=== PATIENT | female | born 1995 | race Caucasian/White ===

== ENCOUNTER 2024-01-28 22:03 | Emergency (ER) | payer MEDICAID ==
[~2024-01-28] VITALS: Ht 160 cm; Wt 70.0 kg
[2024-01-28 22:24] VITALS: TEMP 98.2
[2024-01-28 23:08] LABS: MEAN PLATELET VOLUME 6.9 FL (7.4-10.4); MONOCYTES # (AUTO) 0.8 X10'3 (0-0.9); MONOCYTES % (AUTO) 4.2 % (2-12)
[2024-01-28 23:09] LABS: BASOPHILS # (AUTO) 0.1 X10'3 (0-0.2); BASOPHILS % (AUTO) 0.4 % (0-1); EOSINOPHILS # (AUTO) 0.3 X10'3 (0-0.9); EOSINOPHILS % (AUTO) 1.7 % (0-6); HEMATOCRIT 33.6 % (35.0-45.0); LYMPHOCYTES # (AUTO) 1.5 X10'3 (1.1-4.8); LYMPHOCYTES % (AUTO) 8.6 % (21-51); MEAN CORPUSCULAR HEMOGLOBIN 25.9 PG (27.0-31.0); MEAN CORPUSCULAR HGB CONC 32.7 g/dL (33.0-36.5); MEAN CORPUSCULAR VOLUME 79.4 FL (78-98); NEUTROPHILS # (AUTO) 15.3 X10'3 (1.8-7.7); NEUTROPHILS % (AUTO) 85.1 % (42-75); PLATELET COUNT 636 X10'3 (140-440); RED BLOOD COUNT 4.23 X10'6 (4.20-5.60); RED CELL DISTRIBUTION WIDTH 14.5 % (11.5-14.5)
[2024-01-28 23:18] LABS: ALANINE AMINOTRANSFERASE 14 U/L (12-78); ALBUMIN 3.1 G/DL (3.4-5.0); ALBUMIN/GLOBULIN RATIO 0.6 (1.1-1.5); ALKALINE PHOSPHATASE 65 IU/L (46-116); ANION GAP 9 (8-16); ASPARTATE AMINO TRANSFERASE 12 U/L (10-37); BILIRUBIN,TOTAL 0.1 MG/DL (0.1-1.0); BLOOD UREA NITROGEN 13 MG/DL (7-18); BUN/CREATININE RATIO 18.1 (10.0-20.0); CALCIUM 9.2 MG/DL (8.5-10.1); CHLORIDE 102 MMOL/L (99-107); CREATININE 0.72 MG/DL (0.40-0.90); GLUCOSE 115 MG/DL (70-104); POTASSIUM 3.9 MMOL/L (3.5-5.1); SODIUM 142 MMOL/L (135-145); TOTAL CARBON DIOXIDE 30.7 MMOL/L (24-32); TOTAL PROTEIN 8.1 G/DL (6.4-8.2); eCRCL 97 ML/MIN; eGFR > 90 ML/MIN
[2024-01-28 23:29] LABS: LIPASE 12 U/L (16-77)
[2024-01-28 23:37] LABS: BETA HCG,QUANTITATIVE < 1.0 mIU/ml
[2024-01-29] MEDS ORDERED: ketorolac trometh. 30mg/ml inj. IV ONE (00:05)
[2024-01-29] MEDS: ondansetron/PF 4mg/2ml inj IV ONE (00:06)
[2024-01-29] MEDS: morphine 4 MG/ML inj SYRINge IV ONE (00:06)
[2024-01-29] MEDS: ketorolac tromethamine 15mg/ml inj. IV ONE (00:50)
[2024-01-29] MEDS: normal saline 1000ml 1,000 ML IV ONE (00:50)
[2024-01-29] MEDS ORDERED: HYDR-3965 PO (02:16)
[2024-01-29] MEDS ORDERED: CIPR-202 PO (02:16)
[2024-01-29] MEDS ORDERED: ONDA8TAB13 PO (02:16)
[2024-01-29] MEDS ORDERED: METR-159 PO (02:16)
[2024-01-29] MEDS: pantoprazole 40 MG vial IV ONE (02:24)
[2024-01-29] MEDS: famotidine/PF 10 mg/ml inj IV ONE (02:24)
[2024-01-29] MEDS: metroNIDAZOLE-Flagyl 500mg/NS 100 ML IV STA (02:25)
[2024-01-29] MEDS: mag hydrox/Alum hydrox/simeth 30ml oral suspension PO ONE (02:25)
[2024-01-29] MEDS: ciprofloxacin lact 400MG/200ML 200 ML IV ONE (03:29)
[2024-01-29 05:03] VITALS: BP 105/68; PULSE 95; RESP 18; O2SAT 100
== END 2024-01-29 05:04 | disposition home or self-care (01) ==
LOC: ER 22:05
DX: K52.9 Noninfective gastroenteritis and colitis, unspecified (principal); R07.81 Pleurodynia; Z79.2 Long term (current) use of antibiotics; Z79.899 Other long term (current) drug therapy
CPT/HCPCS: 36415; 74176; 80053; 83690; 84145; 84702; 85025; 96361; 96365; 96368; 96375; 99285; C9113; J0744; J1885; J2270; J2405; J3490; J7030

== ENCOUNTER 2024-05-08 05:24 | Emergency (ER) | payer MEDICAID, OTHER ==
[~2024-05-08] VITALS: Ht 160 cm; Wt 65.9 kg
[~2024-05-08 05:24] MED LIST: ONDA8TAB13 PO
[2024-05-08 05:25] VITALS: TEMP 97.3
[2024-05-08] MEDS: ketorolac tromethamine 15mg/ml inj. IM ONE (06:13)
[2024-05-08] MEDS ORDERED: DOXY150T3 PO (06:39)
[2024-05-08] MEDS ORDERED: SILV50CR31 TP (06:40)
[2024-05-08] MEDS: hydrALAZINE 25 MG tablet PO ONE (06:45)
[2024-05-08 06:58] VITALS: BP 130/71; PULSE 85; RESP 12; O2SAT 96
== END 2024-05-08 07:04 | disposition home or self-care (01) ==
LOC: ER 05:24
DX: L03.115 Cellulitis of right lower limb (principal); L50.9 Urticaria, unspecified; Z79.2 Long term (current) use of antibiotics; Z79.899 Other long term (current) drug therapy
CPT/HCPCS: 74018; 96372; 99283; J1885